=== PATIENT | female | born 1985 | race Caucasian/White ===

== ENCOUNTER 2018-10-19 08:55 | Emergency (ER) | payer MEDICAID ==
[~2018-10-19] VITALS: Ht 154.9 cm; Wt 110.5 kg
[2018-10-19] MEDS ORDERED: dexamethasone sod phosphate 10mg/ml inj IV STA (09:27)
[2018-10-19] MEDS ORDERED: ketorolac trometh. 30mg/ml inj. IV ONE (09:30)
[2018-10-19] MEDS ORDERED: LORazepam 2 mg/ml vial IV ONE (09:30)
--- NOTE | 2018-10-19 10:02 | NUR ---
PT SLEEPING, RESPIRATIONS SPONTANEOUS, EVEN AND UNLABORED, NO S/S OF DISTRESS OR DISCOMFORT AT THIS TIME.
[2018-10-19] MEDS ORDERED: morphine 4 MG/ML inj SYRINge IV ONE (11:40)
[2018-10-19] MEDS ORDERED: NAPR-56 PO (12:32)
[2018-10-19] MEDS ORDERED: HYDR-4383 PO (12:32)
[2018-10-19] MEDS ORDERED: CYCL-1 PO (12:32)
[2018-10-19 13:27] VITALS: BP 105/73
== END 2018-10-19 13:27 | disposition home or self-care (01) ==
LOC: ER 08:56
DX: M51.16 Intervertebral disc disorders with radiculopathy, lumbar region (principal); M51.27 Other intervertebral disc displacement, lumbosacral region
CPT/HCPCS: 72148; 96374; 96375; 99284; J1100; J1885; J2060; J2270

== ENCOUNTER 2018-11-21 08:27 | Emergency (ER) | payer MEDICAID ==
[~2018-11-21] VITALS: Ht 154.9 cm; Wt 110.5 kg
[~2018-11-21 08:27] MED LIST: CYCL-1 PO; HYDR-4383 PO
[2018-11-21 08:44] VITALS: BP 131/75
[2018-11-21] MEDS ORDERED: ERYT1OIN6 EACHEYE (09:19)
== END 2018-11-21 09:49 | disposition home or self-care (01) ==
LOC: ER 08:27
DX: H04.123 Dry eye syndrome of bilateral lacrimal glands (principal); M19.90 Unspecified osteoarthritis, unspecified site; G89.29 Other chronic pain; Z88.0 Allergy status to penicillin; Z88.6 Allergy status to analgesic agent; Z91.040 Latex allergy status; Z88.8 Allergy status to other drugs, medicaments and biological substances; Z79.899 Other long term (current) drug therapy
CPT/HCPCS: 99283

== ENCOUNTER 2019-03-18 17:21 | Emergency (ER) | payer MEDICAID ==
[~2019-03-18] VITALS: Ht 154.9 cm; Wt 113.0 kg
[2019-03-18 17:29] VITALS: BP 127/75
[2019-03-18] MEDS ORDERED: ipratropium/albuterol 3ml nebule NEB ONE (18:00)
[2019-03-18] MEDS ORDERED: DOXY100C43 PO (18:21)
[2019-03-18] MEDS ORDERED: METH4TAB81 PO (18:21)
[2019-03-18] MEDS ORDERED: FLUC150T5 PO (19:03)
== END 2019-03-18 19:07 | disposition home or self-care (01) ==
LOC: ER 17:22
DX: J45.901 Unspecified asthma with (acute) exacerbation (principal); M19.90 Unspecified osteoarthritis, unspecified site; G89.29 Other chronic pain; Z88.0 Allergy status to penicillin; Z88.6 Allergy status to analgesic agent; Z88.8 Allergy status to other drugs, medicaments and biological substances; Z91.040 Latex allergy status; Z79.899 Other long term (current) drug therapy
CPT/HCPCS: 94640; 94760; 99283

== ENCOUNTER 2020-05-03 08:07 | Outpatient (CLI) | payer MEDICAID ==
[~2020-05-03 08:07] MED LIST changes: +FLUC150T5 PO; +METH4TAB81 PO
== END 2020-05-03 23:59 | disposition home or self-care (01) ==
LOC: RAD 08:07
PROVIDERS: ATTEND Psychiatry & Neurology Neurology
DX: G40.209 Localization-related (focal) (partial) symptomatic epilepsy and epileptic syndromes with complex partial seizures, not intractable, without status epilepticus (principal)
CPT/HCPCS: 95816

== ENCOUNTER 2020-07-10 20:25 | Emergency (ER) | payer MEDICAID ==
[~2020-07-10] VITALS: Ht 154.9 cm; Wt 89.1 kg
[2020-07-10 21:16] LABS: BASOPHILS % (AUTO) 0.3 % (0-1); EOSINOPHILS # (AUTO) 0.4 X10'3 (0-0.9); EOSINOPHILS % (AUTO) 5.1 % (0-6); HEMATOCRIT 36.1 % (35.0-45.0); HEMOGLOBIN 11.9 g/dl (12.0-16.0); LYMPHOCYTES # (AUTO) 2.8 X10'3 (1.1-4.8); LYMPHOCYTES % (AUTO) 37.1 % (21-51); MEAN CORPUSCULAR HEMOGLOBIN 28.4 PG (27.0-31.0); MEAN CORPUSCULAR HGB CONC 33.1 g/dL (33.0-36.5); MEAN CORPUSCULAR VOLUME 85.8 FL (78-98); MEAN PLATELET VOLUME 9.8 FL (7.4-10.4); MONOCYTES # (AUTO) 0.5 X10'3 (0-0.9); MONOCYTES % (AUTO) 6.7 % (2-12); NEUTROPHILS # (AUTO) 3.8 X10'3 (1.8-7.7); NEUTROPHILS % (AUTO) 50.8 % (42-75); PLATELET COUNT 194 X10'3 (140-440); RED BLOOD COUNT 4.21 X10'6 (4.20-5.60); RED CELL DISTRIBUTION WIDTH 15.6 % (11.5-14.5); WHITE BLOOD COUNT 7.5 X10'3 (4.5-11.0)
[2020-07-10 21:23] LABS: ALANINE AMINOTRANSFERASE 21 U/L (12-78); ALBUMIN 3.7 G/DL (3.4-5.0); ALBUMIN/GLOBULIN RATIO 1.2 (1.1-1.5); ALKALINE PHOSPHATASE 72 IU/L (46-116); ANION GAP 11 (8-16); ASPARTATE AMINO TRANSFERASE 19 U/L (10-37); BILIRUBIN,TOTAL 0.1 MG/DL (0.1-1.0); BLOOD UREA NITROGEN 15 MG/DL (7-18); BUN/CREATININE RATIO 20.5 (6.6-38.0); CALCIUM 8.6 MG/DL (8.5-10.1); CHLORIDE 110 MMOL/L (99-107); CREATININE 0.73 MG/DL (0.40-0.90); GLUCOSE 84 MG/DL (70-104); POTASSIUM 3.8 MMOL/L (3.5-5.1); SODIUM 143 MMOL/L (135-145); TOTAL CARBON DIOXIDE 21.6 MMOL/L (24-32); TOTAL PROTEIN 6.8 G/DL (6.4-8.2); eGFR 90 ML/MIN
[2020-07-10 21:51] LABS: URINE HCG NEGATIVE (NEG)
[2020-07-10 21:58] LABS: COLOR,URINE YELLOW (Yellow); GLUCOSE, URINE NEGATIVE (Neg); KETONES,URINE NEGATIVE (Neg); LEUKOCYTE ESTERASE ,URINE TRACE (Neg); NITRITES, URINE NEGATIVE (Neg); OCCULT BLOOD,URINE TRACE-INTACT (Neg); PH,URINE 7.5 (4.8-8.0); PROTEIN,URINE NEGATIVE (Neg); UROBILINOGEN,URINE 0.2 E.U/dL (0.2-1.0)
[2020-07-10 21:59] LABS: CLARITY,URINE SLIGHTLY CLOUDY (Clear); UA COLLECTION TYPE VOIDED
[2020-07-10 22:07] LABS: RBC,URINE 0-2 /HPF (0-2); SQUAMOUS EPITHELIAL CELL,UR FEW /LPF (FEW)
[2020-07-10 22:08] LABS: BACTERIA,URINE FEW /HPF (Neg); WBC,URINE 0-4 /HPF (0-4)
[2020-07-10] MEDS ORDERED: ondansetron 4mg rapidly disintigrating tab PO ONE (22:15)
[2020-07-10] MEDS ORDERED: famotidine 20mg tablet PO ONE (22:15)
[2020-07-10] MEDS ORDERED: mag hydrox/Alum hydrox/simeth 30ml oral suspension PO ONE (22:15)
[2020-07-10] MEDS ORDERED: LIDOcaine Viscous 15ml cup MM ONE (22:15)
[2020-07-10 22:28] LABS: LIPASE 131 U/L (73-393)
[2020-07-10] MEDS ORDERED: FAMO-128 PO (23:10)
[2020-07-10] MEDS ORDERED: ONDA4TAB6 PO (23:10)
[2020-07-10 23:19] VITALS: BP 109/71
== END 2020-07-10 23:22 | disposition home or self-care (01) ==
LOC: ER 20:27
DX: K21.9 Gastro-esophageal reflux disease without esophagitis (principal); M19.90 Unspecified osteoarthritis, unspecified site; G89.29 Other chronic pain; Z88.0 Allergy status to penicillin; Z88.6 Allergy status to analgesic agent; Z91.040 Latex allergy status; Z88.8 Allergy status to other drugs, medicaments and biological substances; Z79.899 Other long term (current) drug therapy
CPT/HCPCS: 36415; 80053; 81001; 81025; 83690; 83880; 84484; 85025; 87088; 93005; 99284

== ENCOUNTER 2021-03-03 09:59 | Emergency (ER) | payer MEDICAID ==
[~2021-03-03] VITALS: Ht 157.5 cm; Wt 94.5 kg
[~2021-03-03 09:59] MED LIST changes: +FAMO-128 PO; +ONDA4TAB6 PO
[2021-03-03 10:38] VITALS: BP 145/86
== END 2021-03-03 14:45 | disposition home or self-care (01) ==
LOC: ER 10:00
DX: B34.9 Viral infection, unspecified (principal); Z20.822 Contact with and (suspected) exposure to COVID-19; R19.7 Diarrhea, unspecified; R06.02 Shortness of breath; R53.83 Other fatigue; R11.0 Nausea; J45.909 Unspecified asthma, uncomplicated; K21.9 Gastro-esophageal reflux disease without esophagitis; M19.90 Unspecified osteoarthritis, unspecified site; G89.29 Other chronic pain; Z88.0 Allergy status to penicillin; Z88.8 Allergy status to other drugs, medicaments and biological substances; Z88.6 Allergy status to analgesic agent; Z91.040 Latex allergy status; Z79.899 Other long term (current) drug therapy
CPT/HCPCS: 87635; 99283; C9803

== ENCOUNTER 2021-04-09 08:38 | Emergency (ER) | payer MEDICAID ==
[~2021-04-09] VITALS: Ht 154.9 cm; Wt 97.3 kg
[~2021-04-09 08:38] MED LIST changes: +FLUC150T46 PO; -FLUC150T5 PO
[2021-04-09 08:40] VITALS: BP 162/84
[2021-04-09 09:12] LABS: CLARITY,URINE CLEAR (Clear); GLUCOSE, URINE NEGATIVE (Neg); KETONES,URINE NEGATIVE (Neg); LEUKOCYTE ESTERASE ,URINE NEGATIVE (Neg); OCCULT BLOOD,URINE TRACE-INTACT (Neg); PH,URINE 6.5 (4.8-8.0); PROTEIN,URINE NEGATIVE (Neg); UROBILINOGEN,URINE 0.2 E.U/dL (0.2-1.0)
[2021-04-09 09:14] LABS: COLOR,URINE YELLOW (Yellow); UA COLLECTION TYPE CLN CATCH MIDSTREAM
[2021-04-09 09:15] LABS: NITRITES, URINE NEGATIVE (Neg)
[2021-04-09 09:24] LABS: BACTERIA,URINE FEW /HPF (Neg); RBC,URINE 0-2 /HPF (0-2); SQUAMOUS EPITHELIAL CELL,UR FEW /LPF (FEW); WBC,URINE 0-4 /HPF (0-4)
--- NOTE | 2021-04-09 13:57 | NUR ---
ULTRASOUND AT BEDSIDE.
[2021-04-09 14:07] LABS: URINE HCG NEGATIVE (NEG)
== END 2021-04-09 15:13 | disposition home or self-care (01) ==
LOC: ER 08:39
DX: R10.32 Left lower quadrant pain (principal); J45.909 Unspecified asthma, uncomplicated; K21.9 Gastro-esophageal reflux disease without esophagitis; M19.90 Unspecified osteoarthritis, unspecified site; G89.29 Other chronic pain; Z90.89 Acquired absence of other organs; Z90.710 Acquired absence of both cervix and uterus; Z88.1 Allergy status to other antibiotic agents; Z88.0 Allergy status to penicillin; Z88.8 Allergy status to other drugs, medicaments and biological substances; Z88.6 Allergy status to analgesic agent; Z91.040 Latex allergy status; Z79.899 Other long term (current) drug therapy
CPT/HCPCS: 76856; 81001; 81025; 93976; 99284

== ENCOUNTER 2021-04-23 05:31 | Emergency (ER) | payer MEDICAID ==
[~2021-04-23] VITALS: Ht 154.9 cm; Wt 100.0 kg
[2021-04-23 05:50] VITALS: BP 155/127
[2021-04-23] MEDS ORDERED: CEFD300C3 PO (07:27)
[2021-04-23] MEDS ORDERED: ERYT1OIN6 LEFTEYE (07:32)
== END 2021-04-23 07:55 | disposition home or self-care (01) ==
LOC: ER 05:32
DX: B34.9 Viral infection, unspecified (principal); Z20.822 Contact with and (suspected) exposure to COVID-19; H92.09 Otalgia, unspecified ear; J45.909 Unspecified asthma, uncomplicated; K21.9 Gastro-esophageal reflux disease without esophagitis; M19.90 Unspecified osteoarthritis, unspecified site; G89.29 Other chronic pain; Z90.49 Acquired absence of other specified parts of digestive tract; Z90.710 Acquired absence of both cervix and uterus; Z88.1 Allergy status to other antibiotic agents; Z88.0 Allergy status to penicillin; Z88.8 Allergy status to other drugs, medicaments and biological substances; Z91.040 Latex allergy status; Z79.2 Long term (current) use of antibiotics; Z79.899 Other long term (current) drug therapy
CPT/HCPCS: 87635; 99283; C9803

== ENCOUNTER 2021-06-26 16:03 | Emergency (ER) | payer MEDICAID ==
[~2021-06-26] VITALS: Ht 154.9 cm; Wt 104.7 kg
[2021-06-26 16:47] VITALS: BP 132/86
== END 2021-06-26 21:05 | disposition home or self-care (01) ==
LOC: ER 16:04
DX: M25.562 Pain in left knee (principal); J45.909 Unspecified asthma, uncomplicated; K21.9 Gastro-esophageal reflux disease without esophagitis; M19.90 Unspecified osteoarthritis, unspecified site; G89.29 Other chronic pain; Z90.49 Acquired absence of other specified parts of digestive tract; Z88.1 Allergy status to other antibiotic agents; Z88.0 Allergy status to penicillin; Z88.8 Allergy status to other drugs, medicaments and biological substances; Z91.040 Latex allergy status; Z79.899 Other long term (current) drug therapy
CPT/HCPCS: 29505; 73560; 99283

== ENCOUNTER 2022-11-12 11:08 | Emergency (ER) | payer MEDICAID ==
[~2022-11-12] VITALS: Ht 154.9 cm; Wt 106.0 kg
[2022-11-12 11:11] VITALS: BP 143/91; PULSE 97; RESP 18; TEMP 97.5; O2SAT 97
[2022-11-12 12:08] LABS: BASOPHILS % (AUTO) 0.6 % (0-1); EOSINOPHILS # (AUTO) 0.2 X10'3 (0-0.9); EOSINOPHILS % (AUTO) 3.5 % (0-6); HEMATOCRIT 33.9 % (35.0-45.0); HEMOGLOBIN 10.9 g/dl (12.0-16.0); LYMPHOCYTES # (AUTO) 1.6 X10'3 (1.1-4.8); LYMPHOCYTES % (AUTO) 29.8 % (21-51); MEAN CORPUSCULAR HGB CONC 32.1 g/dL (33.0-36.5); MEAN CORPUSCULAR VOLUME 74.8 FL (78-98); MEAN PLATELET VOLUME 9.1 FL (7.4-10.4); MONOCYTES # (AUTO) 0.3 X10'3 (0-0.9); MONOCYTES % (AUTO) 6.3 % (2-12); NEUTROPHILS # (AUTO) 3.2 X10'3 (1.8-7.7); NEUTROPHILS % (AUTO) 59.8 % (42-75); PLATELET COUNT 225 X10'3 (140-440); RED BLOOD COUNT 4.54 X10'6 (4.20-5.60); RED CELL DISTRIBUTION WIDTH 15.5 % (11.5-14.5); WHITE BLOOD COUNT 5.3 X10'3 (4.5-11.0)
[2022-11-12 12:33] LABS: ALANINE AMINOTRANSFERASE 22 U/L (12-78); ALBUMIN/GLOBULIN RATIO 1.3 (1.1-1.5); ALKALINE PHOSPHATASE 65 IU/L (46-116); AMYLASE 55 U/L (25-115); ANION GAP 9 (8-16); ASPARTATE AMINO TRANSFERASE 17 U/L (10-37); BILIRUBIN,TOTAL 0.4 MG/DL (0.1-1.0); BLOOD UREA NITROGEN 11 MG/DL (7-18); BUN/CREATININE RATIO 12.2 (10.0-20.0); CALCIUM 8.7 MG/DL (8.5-10.1); CHLORIDE 110 MMOL/L (99-107); GLUCOSE 90 MG/DL (70-104); LIPASE 94 U/L (73-393); SODIUM 141 MMOL/L (135-145); TOTAL CARBON DIOXIDE 22.2 MMOL/L (24-32); TOTAL PROTEIN 7.1 G/DL (6.4-8.2); eCRCL 64 ML/MIN; eGFR 70 ML/MIN
== END 2022-11-12 13:54 | disposition left against medical advice (07) ==
LOC: ER 11:08
DX: R10.9 Unspecified abdominal pain (principal); Z53.21 Procedure and treatment not carried out due to patient leaving prior to being seen by health care provider
CPT/HCPCS: 36415; 80053; 82150; 83690; 85025; 99281

== ENCOUNTER 2024-02-03 10:30 | Emergency (ER) | payer MEDICAID ==
[~2024-02-03] VITALS: Ht 154.9 cm; Wt 106.7 kg
[2024-02-03 11:36] LABS: BASOPHILS % (AUTO) 0.2 % (0-1); EOSINOPHILS # (AUTO) 0.2 X10'3 (0-0.9); EOSINOPHILS % (AUTO) 1.9 % (0-6); HEMATOCRIT 42.7 % (35.0-45.0); HEMOGLOBIN 14.3 g/dl (12.0-16.0); LYMPHOCYTES # (AUTO) 1.1 X10'3 (1.1-4.8); LYMPHOCYTES % (AUTO) 11.6 % (21-51); MEAN CORPUSCULAR HEMOGLOBIN 28.5 PG (27.0-31.0); MEAN CORPUSCULAR HGB CONC 33.6 g/dL (33.0-36.5); MEAN CORPUSCULAR VOLUME 84.8 FL (78-98); MEAN PLATELET VOLUME 9.5 FL (7.4-10.4); MONOCYTES # (AUTO) 0.5 X10'3 (0-0.9); MONOCYTES % (AUTO) 5.1 % (2-12); NEUTROPHILS % (AUTO) 81.2 % (42-75); PLATELET COUNT 228 X10'3 (140-440); RED BLOOD COUNT 5.03 X10'6 (4.20-5.60); RED CELL DISTRIBUTION WIDTH 13.6 % (11.5-14.5); WHITE BLOOD COUNT 9.9 X10'3 (4.5-11.0)
[2024-02-03 11:50] LABS: ALANINE AMINOTRANSFERASE 24 U/L (12-78); ALBUMIN 3.8 G/DL (3.4-5.0); ALKALINE PHOSPHATASE 71 IU/L (46-116); AMYLASE 32 U/L (25-115); ANION GAP 10 (8-16); ASPARTATE AMINO TRANSFERASE 17 U/L (10-37); BILIRUBIN,TOTAL 0.4 MG/DL (0.1-1.0); BLOOD UREA NITROGEN 11 MG/DL (7-18); BUN/CREATININE RATIO 12.1 (10.0-20.0); CALCIUM 8.3 MG/DL (8.5-10.1); CHLORIDE 108 MMOL/L (99-107); CREATININE 0.91 MG/DL (0.40-0.90); GLUCOSE 96 MG/DL (70-104); LIPASE 27 U/L (16-77); POTASSIUM 3.7 MMOL/L (3.5-5.1); SODIUM 143 MMOL/L (135-145); TOTAL CARBON DIOXIDE 25.2 MMOL/L (24-32); TOTAL PROTEIN 7.5 G/DL (6.4-8.2); eCRCL 62 ML/MIN; eGFR 68 ML/MIN
[2024-02-03] MEDS: ondansetron 4mg rapidly disintigrating tab PO STA (15:04)
[2024-02-03 15:06] VITALS: TEMP 99.1
[2024-02-03] MEDS ORDERED: ONDA-243 PO (15:19)
[2024-02-03 16:03] VITALS: BP 147/89; PULSE 89; RESP 18; O2SAT 98
== END 2024-02-03 16:05 | disposition home or self-care (01) ==
LOC: ER 10:31
DX: A08.4 Viral intestinal infection, unspecified (principal); J45.909 Unspecified asthma, uncomplicated; G89.29 Other chronic pain; K21.9 Gastro-esophageal reflux disease without esophagitis; M19.90 Unspecified osteoarthritis, unspecified site; Z88.0 Allergy status to penicillin; Z88.1 Allergy status to other antibiotic agents; Z88.3 Allergy status to other anti-infective agents; Z88.5 Allergy status to narcotic agent; Z88.6 Allergy status to analgesic agent; Z88.8 Allergy status to other drugs, medicaments and biological substances; Z79.899 Other long term (current) drug therapy; Z90.49 Acquired absence of other specified parts of digestive tract; Z90.710 Acquired absence of both cervix and uterus
CPT/HCPCS: 36415; 80053; 82150; 83690; 85025; 99283

== ENCOUNTER 2024-08-19 10:34 | Outpatient (CLI) | payer MEDICAID ==
[~2024-08-19 10:34] MED LIST changes: +ONDA-243 PO
--- NOTE | 2024-08-19 12:20 | RADIOLOGY REPORT ---
PROCEDURE: Right shoulder radiographs. INDICATION: SPRAIN OF RIGHT SHOULDER TECHNIQUE: 4 views of the right shoulder were obtained. COMPARISON: None FINDINGS: There is no evidence of fracture or dislocation. Joint spaces are maintained. The soft tis sues are unremarkable. IMPRESSION: 1. No fracture or dislocation.
== END 2024-08-19 23:59 | disposition home or self-care (01) ==
LOC: RAD 10:34
PROVIDERS: ATTEND Nurse Practitioner Family
DX: S43.401A Unspecified sprain of right shoulder joint, initial encounter (principal); X58.XXXA Exposure to other specified factors, initial encounter; Y93.89 Activity, other specified; Y92.89 Other specified places as the place of occurrence of the external cause; Y99.8 Other external cause status
CPT/HCPCS: 73030